=== PATIENT | female | born 1980 | race African-American/Black ===

== ENCOUNTER 2020-06-26 11:18 | Emergency (ER) | payer MEDICAID ==
[~2020-06-26] VITALS: Ht 157.5 cm; Wt 82.0 kg
[2020-06-26] MEDS ORDERED: ACETAMINOPHEN 325MG TABLET PO STA (11:44)
[2020-06-26] MEDS ORDERED: AMOXICILLIN/POTASSIUM CLAVULANATE 875/125MG TAB PO ONE (11:45)
[2020-06-26 12:06] LABS: CLARITY URINE CLEAR (CLEAR); COLOR URINE YELLOW (YELLOW); KETONES URINE NEGATIVE (NEGATIVE); LEUKOCYTE ESTERASE URINE 1+ (NEGATIVE); NITRITE URINE NEGATIVE (NEGATIVE); OCCULT BLOOD URINE 3+ (NEGATIVE); PH URINE 7.5 (4.5-8.0); PROTEIN URINE NEGATIVE (NEGATIVE); UROBILINOGEN URINE 0.2 E.U./dL (0.2-1.0)
[2020-06-26 12:18] LABS: HEMOGLOBIN. 8.3 g/dL (12.0-16.0); MEAN CORPUSCULAR HEMOGLOBIN 22.8 pg (28.0-32.0); MEAN CORPUSCULAR VOLUME 74.2 fL (81.0-99.0); MEAN PLATELET VOLUME 8.8 fl (7.4-10.4); PLATELET 394 x1000/uL (130-400); RED BLOOD CELL COUNT 3.64 mill/uL (4.2-5.4); RED CELL DISTRIBUTION WIDTH 17.8 % (11.6-14.6)
[2020-06-26 12:35] LABS: CHLORIDE 107 mEq/L (98-107)
[2020-06-26] MEDS ORDERED: AMOX-424 MT (13:27)
[2020-06-26] MEDS ORDERED: IBUP-2029 MT (13:28)
[2020-06-26 13:54] VITALS: BP 125/42
[2020-06-26 13:55] LABS: PLATELET ESTIMATE NORMAL
== END 2020-06-26 14:00 | disposition home or self-care (01) ==
LOC: ER 11:18
DX: N12 Tubulo-interstitial nephritis, not specified as acute or chronic (principal); Z98.890 Other specified postprocedural states
CPT/HCPCS: 36415; 80053; 81003; 81025; 85025; 87077; 87186; 93005; 99284